=== PATIENT | male | born 1950 | race American Indian/Alaskan Native ===

== ENCOUNTER 2017-03-26 12:07 | Day surgery (SDC) | payer MEDICARE, OTHER ==
[~2017-03-26 12:07] MED LIST: Lactated Ringers 1,000 ML IV SCH; Lidocaine 2% 5 ML SDV ONE; Sodium Chloride 0.9% 10 ML Syringe FLUSH PRN; Sodium Chloride 0.9% 2.5 ML Syringe FLUSH PRN; fentaNYL 100 MCG/2 ML SDV ONE
[2017-03-26] MEDS ORDERED: Propofol 200 MG/20 ML SDV ONE (12:09)
--- NOTE | 2017-03-26 13:33 | PCM.PREANE ---
Preanesthetic Assessment - Anesthesia/Transfusion/Family Hx Anesthesia History: Prior Anesthesia Without Reaction Other Type of Anesthesia Reaction Comment: "hard to wake up" Family History of Anesthesia Reaction: No Transfusion History: No Prior Transfusion(s) Intubation History: Unknown - Review of Systems General: No Symptoms Pulmonary: No Symptoms Cardiovascular: No Symptoms Gastrointestinal: No symptoms Neurological: No Symptoms Other: Reports: None - Physical Assessment O2 Sat by Pulse Oximetry: 97 Respiratory Rate: 16 Vital Signs: Last Vital Signs Temp 36.3 C 03/26/17 12:59 Pulse 59 L 03/26/17 12:59 Resp 16 03/26/17 12:59 BP 149/71 H 03/26/17 12:59 Pulse Ox 97 03/26/17 12:59 Height: 1.75 m Weight: 120.202 kg ASA Class: 2 Mental Status: Alert & Oriented x3 Airway Class: Mallampati = 2 Dentition: Reports: Partial (lower) Thyro-Mental Finger Breadths: 3 Mouth Opening Finger Breadths: 2 ROM/Head Extension: Limited/Partial Lungs: Clear to auscultation, Normal respiratory effort Cardiovascular: Regular Rate, Regular Rhythm - Allergies Allergies/Adverse Reactions: Allergies Allergy/AdvReac Type Severity Reaction Status Date / Time acetaminophen Allergy Vomiting Verified 07/04/15 15:28 [From Darvocet-N] propoxyphene napsylate Allergy Vomiting Verified 07/04/15 15:28 [From Darvocet-N] Demerol tabs Allergy Nausea and Uncoded 07/04/15 15:28 Vomiting - Blood Blood Available: No - Anesthesia Plan Pre-Op Medication Ordered: None - Acknowledgements Anesthesia Type Planned: MAC Pt an Appropriate Candidate for the Planned Anesthesia: Yes Alternatives and Risks of Anesthesia Discussed w Pt/Guardian: Yes Pt/Guardian Understands and Agrees with Anesthesia Plan: Yes PreAnesthesia Questionnaire Other HEENT History: wears glasses, bottom partial Cardiovascular History: Reports: High Cholesterol, Hypertension Other Cardiovascular History: angiogram in 2007 showed some blockage but no intervention, 30 and 40 % on two coronary arteries Other Respiratory History: hx: smoking, QUIT 1994. 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- chest xray negative Gastrointestinal History: Reports: Colon Polyp, Helicobacter Pylori Other Gastrointestinal History: Hx: H pylori treated for this and resolved problems of heartburn Genitourinary History: Reports: Neurogenic Bladder Other Genitourinary History: kidney stone 3 yrs ago Musculoskeletal History: Reports: Arthritis Psychiatric History: Reports: None Endocrine/Metabolic History: Reports: Obesity/BMI 30+ Dermatologic History: Reports: Other (See Below) Other Dermatologic History: Rash Left thigh - Past Surgical History Head Surgeries/Procedures: Reports: None GI Surgical History: Reports: Cholecystectomy, Colonoscopy, Hernia, Inguinal ( right inguinal x2 \\) Other GI Surgeries/Procedures: Right Ing Hernia repair age 19 yrs, Lap Joanne ' 2008 Musculoskeletal Surgical History: Reports: Knee Replacement (left) Other Musculoskeletal Surgeries/Procedures:: Left total knee arthroplasty - SUBSTANCE USE Smoking Status *Q: Former Smoker Other Tobacco Use Within Last Twelve Months: Auit smoking '1994, SMoked for many years Recreational Drug Use History: No - HOME MEDS Home Medications: Home Meds Chlorthalidone 1 tab PO ACBREAKFAST 07/04/15 [History] Metoprolol Succinate [Toprol XL] 50 mg PO BEDTIME 07/04/15 [History] Niacin 200 mg PO DAILY 07/04/15 [History] Potassium Chloride 1 tab PO ACBREAKFAST 07/04/15 [History] Red Yeast Rice 1 tab PO DAILY 07/04/15 [History] Ubidecarenone [Co Q-10] 1 cap PO DAILY 07/04/15 [History] Vitamin B Complex & Vit C No.4 [Super B Complex] 1 tab PO DAILY 07/04/15 [ History] Rosuvastatin [Crestor] 1 tab PO DAILY 07/05/15 [History] Aspirin [[place] Aspirin] 81 mg PO DAILY 03/19/17 [History] Fluocinolone Acetonide 1 applic TOP ASDIRECTED PRN 03/19/17 [History] Losartan Potassium 100 mg PO BEDTIME 03/19/17 [History] Multivitamin [Multivitamins] 1 tab PO DAILY 03/19/17 [History] - CURRENT (IN HOUSE) MEDS Current Meds: Current Medications Lactated Ringer's (Ringers, Lactated) 1,000 mls @ 125 mls/hr IV ASDIRECTED CACHORRO Last Admin: 03/26/17 13:01 Dose: 125 mls/hr Sodium Chloride (Saline Flush) 10 ml FLUSH ASDIRECTED PRN PRN Reason: Keep Vein Open Sodium Chloride (Saline Flush) 2.5 ml FLUSH ASDIRECTED PRN PRN Reason: Keep Vein Open Discontinued Medications Fentanyl (Sublimaze) Confirm Administered Dose 100 mcg .ROUTE .STK-MED ONE Stop: 03/26/17 11:26 Lidocaine (Xylocaine-Mpf 2%) Confirm Administered Dose 5 ml .ROUTE .STK-MED ONE Stop: 03/26/17 11:26 Propofol (Diprivan 20 Ml) Confirm Administered Dose 400 mg .ROUTE .STK-MED ONE Stop: 03/26/17 12:10
--- NOTE | 2017-03-26 14:39 | PCM.OPNOTE ---
- General Post-Op/Procedure Note Date of Surgery/Procedure: 03/26/17 Operative Procedure(s): Diagnostic colonoscopy Findings: diverticulosis, mild Pre Op Diagnosis: Colon polyps Post-Op Diagnosis: diverticulosis Anesthesia Technique: MAC Primary Surgeon: Jacinta Durand Condition: Good
[2017-03-26 15:09] VITALS: BP 156/82
--- NOTE | 2017-03-27 09:33 | OR ---
SURGEON: LIZA SINCLAIR MD DATE OF PROCEDURE: 03/26/2017 PREOPERATIVE DIAGNOSIS: History of colon polyps. POSTOPERATIVE DIAGNOSIS: Diverticulosis. PROCEDURE PERFORMED: Diagnostic colonoscopy. ANESTHESIA: MAC. EXTENT OF THE EXAM: To the cecum. PREPARATION: Good. LIMITATIONS: None indications. INDICATION FOR EXAMINATION: The patient is a gentleman who presents to clinic with a history of colon polyps. He was lost to followup and is in need of a repeat colonoscopy. We discussed the procedure as well as expected perioperative course. We discussed the risks, including bleeding, infection, or damage to the surrounding structures, including perforation. The patient verbalized understanding and wishes to proceed. PROCEDURE IN DETAIL: The patient was brought into the endoscopy suite and placed in the left lateral decubitus position. A time-out was completed verifying the patient's name, age, date of , allergies, and procedure to be performed. Monitored anesthesia care was induced and continuous oxygen was provided via nasal cannula throughout the procedure. After adequate sedation was achieved, digital rectal exam was performed. This exam was within normal limits. A well lubricated colonoscope was inserted into the patient's rectum and advanced under direct visualization to the level of the cecum. Cecum was identified by both visual and anatomic landmarks. A photograph was taken of the cecal cap; however, I was unable to retroflex the scope within the cecum due to looping more proximally. The scope was then fully withdrawn while examining the color, texture, anatomy, and integrity of the mucosa from the cecum to the anal canal. This was consistent with mild diverticulosis. The scope was brought into the rectum and retroflexed to allow visualization of the anal canal opening. This appeared normal and a photograph was taken. The scope was then straightened out and removed from the patient. The cecum to anus time was 14 minutes. The patient tolerated the procedure well and was taken to the PACU in stable condition. ENDOSCOPIC DIAGNOSIS: Diverticulosis. RECOMMENDATIONS: After the visit, I informed the patient of his diagnosis of diverticulosis. I explained the pathophysiology of the disease including having a diet high in fiber and drinking plenty of water throughout the day. The patient should follow up in clinic in 5 years. TIMA ALONZO /[id number]
== END 2017-03-26 15:15 | disposition home or self-care (01) ==
LOC: MW.SDS 12:07
PROVIDERS: ATTEND Surgery
PROC: 0DJD8ZZ Inspection of Lower Intestinal Tract, Via Natural or Artificial Opening Endoscopic (ICD-10-PCS; principal; 2017-03-26)
DX: Z12.11 Encounter for screening for malignant neoplasm of colon (principal); K57.30 Diverticulosis of large intestine without perforation or abscess without bleeding; Z86.010 Personal history of colon polyps; E78.00 Pure hypercholesterolemia, unspecified; I10 Essential (primary) hypertension; M19.90 Unspecified osteoarthritis, unspecified site; E66.9 Obesity, unspecified; Z87.891 Personal history of nicotine dependence; Z87.442 Personal history of urinary calculi; Z88.5 Allergy status to narcotic agent; Z88.6 Allergy status to analgesic agent; Z79.82 Long term (current) use of aspirin; Z79.899 Other long term (current) drug therapy; Z96.652 Presence of left artificial knee joint; Z90.49 Acquired absence of other specified parts of digestive tract; Z98.890 Other specified postprocedural states; Z68.38 Body mass index [BMI] 38.0-38.9, adult
CPT/HCPCS: G0105; J3010; J7120; J2704

== ENCOUNTER 2019-09-29 10:23 | Emergency (ER) | payer MEDICARE, OTHER ==
--- NOTE | 2019-09-29 10:41 | EDM.PDOC ---
ED HPI GENERAL MEDICAL PROBLEM - General Chief Complaint: Lower Extremity Injury/Pain Stated Complaint: FELL AND BROKE HIS LEFT KNEE Time Seen by Provider: 09/29/19 10:41 Source of Information: Reports: Patient History Limitations: Reports: No Limitations - History of Present Illness INITIAL COMMENTS - FREE TEXT/NARRATIVE: HISTORY AND PHYSICAL: History of present illness: Patient is a 69-year-old male presents to the ED with complaint of left knee pain. He states this morning he slip on the ice and twisted his knee and landed on it. He states he was able to walk on it immediately after but then after sitting down for a while he had worsening pain and unable to walk on it. He reports history of total knee replacement on the left 6 years ago. He states he see Dr. Resendiz in [place] for steroid shots in his right knee and has a follow up with him in 1 month. He denies head or other injury and denies proximal hip pain or distal pain, numbness, or tingling. Review of systems: As per history of present illness and below otherwise all systems reviewed and negative. Past medical history: As per history of present illness and as reviewed below otherwise noncontributory. Surgical history: As per history of present illness and as reviewed below otherwise noncontributory. Social history: No reported history of drug or alcohol abuse. Family history: As per history of present illness and as reviewed below otherwise noncontributory. Physical exam: General: Patient sitting comfortably in no acute distress and nontoxic appearing HEENT: Atraumatic, normocephalic, pupils reactive, negative for conjunctival pallor or scleral icterus, mucous membranes moist, throat clear, neck supple, nontender, trachea midline. No meningeal signs. Lungs: Clear to auscultation, breath sounds equal bilaterally, chest nontender. Heart: S1S2, regular, negative for clicks, rubs, or overt murmur. Abdomen: Soft, nondistended, nontender. Negative for masses or hepatosplenomegaly. Negative for costovertebral tenderness. No rigidity, rebound , guarding. Pelvis: Stable nontender. Genitourinary: Deferred. Rectal: Deferred. Extremities: Well healed anterior incision to the left knee. Moderate swelling noted. No erythema or warmth, skin is intact. Pain to palpation of medial knee. Atraumatic, negative for cords or calf pain. Neurovascular unremarkable. Neuro: Awake, alert, oriented. Cranial nerves II through XII unremarkable. Cerebellum unremarkable. Motor and sensory unremarkable throughout. Exam nonfocal. Notes: Diagnostics: x-ray left knee Therapeutics: Toradol 60mg IM Prescriptions: Impression: Left knee injury Plan: 1. Ice, elevate, and motrin or tylenol as needed 2. Follow up with orthopedics, please call the number provided to schedule an appointment 3. Return to ED as needed as discussed Definitive disposition and diagnosis as appropriate pending reevaluation and review of above. - Related Data Allergies Allergy/AdvReac Type Severity Reaction Status Date / Time acetaminophen Allergy Vomiting Verified 09/29/19 10:51 [From Darvocet-N] propoxyphene napsylate Allergy Vomiting Verified 09/29/19 10:51 [From Darvocet-N] Demerol tabs Allergy Nausea and Uncoded 09/29/19 10:51 Vomiting Home Meds: Home Meds Potassium Chloride 1 tab PO ACBREAKFAST 07/04/15 [History] Rosuvastatin [Crestor] 1 tab PO DAILY 07/05/15 [History] Amoxicillin 2,000 mg PO ASDIRECTED PRN 09/29/19 [History] Betamethasone/Clotrimazole [Lotrisone] 1 applic TOP BID PRN 09/29/19 [History] Diclofenac Sodium [Voltaren] 75 mg PO BID PRN 09/29/19 [History] Diclofenac Sodium [Voltaren] 75 mg PO BIDMEALS #20 tab.cr 09/29/19 [Rx] Doxazosin [Cardura] 4 mg PO BEDTIME 09/29/19 [History] Metaxalone 800 mg PO BID PRN 09/29/19 [History] Omeprazole 40 mg PO DAILY 09/29/19 [History] Past Medical History Other HEENT History: wears glasses, bottom partial Cardiovascular History: Reports: High Cholesterol, Hypertension Other Cardiovascular History: angiogram in 2007 showed some blockage but no intervention, 30 and 40 % on two coronary arteries Other Respiratory History: hx: smoking, QUIT 1994. 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- chest xray negative Gastrointestinal History: Reports: Colon Polyp, Helicobacter Pylori Other Gastrointestinal History: Hx: H pylori treated for this and resolved problems of heartburn Genitourinary History: Reports: Neurogenic Bladder Other Genitourinary History: kidney stone 3 yrs ago Musculoskeletal History: Reports: Arthritis Psychiatric History: Reports: None Endocrine/Metabolic History: Reports: Obesity/BMI 30+ Dermatologic History: Reports: Other (See Below) Other Dermatologic History: Rash Left thigh - Past Surgical History Head Surgeries/Procedures: Reports: None GI Surgical History: Reports: Cholecystectomy, Colonoscopy, Hernia, Inguinal Other GI Surgeries/Procedures: Right Ing Hernia repair age 19 yrs, Lap Joanne2008 Musculoskeletal Surgical History: Reports: Knee Replacement Other Musculoskeletal Surgeries/Procedures:: Left total knee arthroplasty Review of Systems - Review of Systems Review Of Systems: Comprehensive ROS is negative, except as noted in HPI. ED EXAM, GENERAL - Physical Exam Exam: See Below (see dictation) Course - Vital Signs Last Recorded V/S: Last Vital Signs Temp 97.6 F 09/29/19 10:47 Pulse 67 09/29/19 10:47 Resp 16 09/29/19 10:47 BP 138/82 09/29/19 10:47 Pulse Ox 98 09/29/19 10:47 - Orders/Labs/Meds Meds: Medications Discontinued Medications Generic Name Dose Route Start Last Admin Trade Name Freq PRN Reason Stop Dose Admin Ketorolac Tromethamine 60 mg 09/29/19 10:50 09/29/19 11:22 Toradol IM 09/29/19 10:51 60 mg ONETIME ONE Administration Departure - Departure Time of Disposition: 11:52 Disposition: Home, Self-Care 01 Condition: Good Clinical Impression: Left knee injury - Discharge Information Referrals: Dari Chambers MD [Primary Care Provider] - Forms: ED Department Discharge Additional Instructions: The following information is given to patients seen in the emergency department who are being discharged to home. This information is to outline your options for follow-up care. We provide all patients seen in our emergency department with a follow-up referral. The need for follow-up, as well as the timing and circumstances, are variable depending upon the specifics of your emergency department visit. If you don't have a primary care physician on staff, we will provide you with a referral. We always advise you to contact your personal physician following an emergency department visit to inform them of the circumstance of the visit and for follow-up with them and/or the need for any referrals to a consulting specialist. The emergency department will also refer you to a specialist when appropriate. This referral assures that you have the opportunity for follow-up care with a specialist. All of these measure are taken in an effort to provide you with optimal care, which includes your follow-up. Under all circumstances we always encourage you to contact your private physician who remains a resource for coordinating your care. When calling for follow-up care, please make the office aware that this follow-up is from your recent emergency room visit. If for any reason you are refused follow-up, please contact the [facility] Emergency Department at and asked to speak to the emergency department charge nurse. [facility] - Orth[facility] Professional Building [address] [place] [address], [address] [place] [address] Dr Resendiz, Orthopedist [address] [address] 1. Ice, elevate, and motrin or tylenol as needed 2. Follow up with orthopedics, please call the number provided to schedule an appointment 3. Return to ED as needed as discussed Sepsis Event Note - Focused Exam Vital Signs: Vital Signs Temp Pulse Resp BP Pulse Ox 09/29/19 10:47 97.6 F 67 16 138/82 98 Date Exam was Performed: 09/29/19 Time Exam was Performed: 11:51
[2019-09-29] MEDS ORDERED: Ketorolac 60 MG/2 ML SDV IM ONE (10:50)
--- NOTE | 2019-09-29 11:48 | CR ---
Left knee: AP, lateral and sunrise patellar views left knee were obtained. Comparison: Previous left knee study of 10/18/13. Knee prosthesis is noted. Components are aligned. Small joint effusion is seen. Vascular calcification is present. No fracture or other abnormality is appreciated. Impression: 1. Small joint effusion appears to be present. 2. Left knee prosthesis is stable in appearance. 3. No acute bony abnormality is identified. Diagnostic code #3 This report was dictated in [place] Standard Time
[2019-09-29 12:22] VITALS: BP 162/68; PULSE 54
== END 2019-09-29 12:05 | disposition home or self-care (01) ==
LOC: MW.ED 10:23
DX: S89.92XA Unspecified injury of left lower leg, initial encounter (principal); I12.9 Hypertensive chronic kidney disease with stage 1 through stage 4 chronic kidney disease, or unspecified chronic kidney disease; N18.3 Chronic kidney disease, stage 3 (moderate); E66.9 Obesity, unspecified; E78.00 Pure hypercholesterolemia, unspecified; Z88.5 Allergy status to narcotic agent; Z79.899 Other long term (current) drug therapy; Z88.6 Allergy status to analgesic agent; Z87.891 Personal history of nicotine dependence; W00.0XXA Fall on same level due to ice and snow, initial encounter
CPT/HCPCS: 73562; 96372; 99283; J1885

== ENCOUNTER 2024-02-07 11:18 | Inpatient (IN) | payer MEDICARE, OTHER ==
[2024-02-07 12:35] LABS: BASOPHILS ABSOLUTE AUTO 0.06 K/uL (0.00-0.20); BASOPHILS PERCENT AUTO 0.7 % (0.0-1.0); EOSINOPHILS ABSOLUTE AUTO 0.25 K/uL (0.00-0.45); EOSINOPHILS PERCENT AUTO 2.8 % (0.0-6.0); HEMATOCRIT 39.4 % (42.0-52.0); HEMOGLOBIN 13.4 g/dL (14.0-18.0); IMMATURE GRAN ABSOLUTE AUTO 0.02 K/uL (0.00-0.05); IMMATURE GRAN PERCENT AUTO 0.2 % (0.0-0.4); LYMPHOCYTES ABSOLUTE AUTO 3.69 K/uL (1.00-4.80); LYMPHOCYTES PERCENT AUTO 41.3 % (24.0-44.0); MEAN CORPUSCULAR HEMOGLOBIN 29.9 pg (28.0-32.0); MEAN CORPUSCULAR VOLUME 87.9 fL (83.0-99.0); MEAN PLATELET VOLUME 9.5 fL (9.4-12.4); MONOCYTES ABSOLUTE AUTO 0.72 K/uL (0.00-0.80); MONOCYTES PERCENT AUTO 8.1 % (0.0-8.0); NEUTROPHILS PERCENT AUTO 46.9 % (41.0-71.0); PLATELET COUNT,PLT 187 K/uL (150-400); RED BLOOD CELL COUNT 4.48 M/uL (4.52-5.90); WHITE BLOOD CELL COUNT,WBC 8.94 K/uL (3.9-11.3)
[2024-02-07 12:43] LABS: INR 1.09 (0.86-1.11)
[2024-02-07 12:56] LABS: A/G RATIO 0.9 (0.9-1.6); ALBUMIN 3.3 g/dL (3.4-5.0); BILIRUBIN TOTAL 0.6 mg/dL (0.2-1.0); CALCIUM 9.3 mg/dL (8.5-10.1); CARBON DIOXIDE,CO2 29.2 mmol/L (21.0-32.0); CREATININE 1.4 mg/dL (0.8-1.3); EST CRCL DRUG DOSING (CG) 46.99 mL/min; POTASSIUM,K 4.1 mmol/L (3.5-5.1); PROTEIN TOTAL,TP 6.9 g/dL (6.4-8.2)
[2024-02-07] MEDS: Metoclopramide 10 MG/2 ML SDV IVPUSH ONE (12:57)
[2024-02-07] MEDS: Sodium Chloride 0.9% 500 ML IV SCH ×2 (12:59→14:08)
[2024-02-07] MEDS: Morphine 4 MG/ML Syringe IVPUSH ONE ×3 (12:59→16:30)
[2024-02-07] MEDS: Sodium Chloride 0.9% 10 ML Syringe FLUSH PRN (13:00)
[2024-02-07] MEDS: Sodium Chloride 0.9% 2.5 ML Syringe FLUSH PRN (13:00)
[2024-02-07] MEDS: Morphine 4 MG/ML Syringe IM ONE (13:05)
[2024-02-07 13:42] LABS: CORONAVIRUS COVID-19 NAA NEGATIVE (NEGATIVE); INFLUENZA A NAA NEGATIVE (NEGATIVE); INFLUENZA B NAA NEGATIVE (NEGATIVE)
[2024-02-07] MEDS: Tetracaine HCl/PF 0.5% 4 ML Bottle EYEBOTH ONE (14:20)
[2024-02-07 18:03] LABS: APPEARANCE CSF CLEAR; COLOR,CSF COLORLESS; WBC,CSF 10 /uL (0-5)
[2024-02-07 18:04] LABS: APPEARANCE CSF CLEAR; COLOR,CSF COLORLESS; MONONUCLEAR, CSF 91.7 %; POLYMORPHONUCLEAR, CSF 8.3 %; RBC,CSF 26 /uL (0-0); RBC,CSF 6 /uL (0-0); WBC,CSF 12 /uL (0-5)
[2024-02-07] MEDS: cefTRIAXone 2 GM in Sodium Chloride 0.9% 50 ML IV ONE (19:17)
[2024-02-07] MEDS: Ampicillin 2 GM in Sodium Chloride 0.9% 100 ML IV ONE (19:42)
[2024-02-07] MEDS: Ondansetron 4 MG/2 ML SDV IVPUSH PRN (21:26)
[2024-02-07] MEDS: Morphine 2 MG/ML SYRINGE IVPUSH PRN (21:27)
[2024-02-07] MEDS: VANCOmycin 2 GM/400 ML 2 GM in Premix Bag 1 BAG IV ONE ×2 (22:12→23:14)
[2024-02-08] MEDS ORDERED: 50% Dextrose in Water 50 ML Syringe IVPUSH PRN (00:34)
[2024-02-08] MEDS ORDERED: Glucagon,Human Recombinant 1 MG Vial IM PRN (00:34)
[2024-02-08] MEDS ORDERED: Promethazine 25 MG Tab PO PRN (00:35)
[2024-02-08] MEDS: Ampicillin 2 GM in Sodium Chloride 0.9% 100 ML IV SCH (00:42)
[2024-02-08] MEDS: Acetaminophen 325 MG Tab PO PRN (03:19)
[2024-02-08 06:33] LABS: BASOPHILS ABSOLUTE AUTO 0.05 K/uL (0.00-0.20); BASOPHILS PERCENT AUTO 0.7 % (0.0-1.0); EOSINOPHILS ABSOLUTE AUTO 0.22 K/uL (0.00-0.45); HEMATOCRIT 38.3 % (42.0-52.0); HEMOGLOBIN 13.1 g/dL (14.0-18.0); IMMATURE GRAN ABSOLUTE AUTO 0.01 K/uL (0.00-0.05); IMMATURE GRAN PERCENT AUTO 0.1 % (0.0-0.4); LYMPHOCYTES ABSOLUTE AUTO 2.47 K/uL (1.00-4.80); LYMPHOCYTES PERCENT AUTO 33.2 % (24.0-44.0); MEAN CORPUSCULAR HGB CONC 34.2 g/dL (32.0-36.0); MEAN CORPUSCULAR VOLUME 87.6 fL (83.0-99.0); MEAN PLATELET VOLUME 9.4 fL (9.4-12.4); MONOCYTES ABSOLUTE AUTO 0.65 K/uL (0.00-0.80); MONOCYTES PERCENT AUTO 8.7 % (0.0-8.0); NEUTROPHILS ABSOLUTE AUTO 4.04 K/uL (1.80-7.70); NEUTROPHILS PERCENT AUTO 54.3 % (41.0-71.0); PLATELET COUNT,PLT 171 K/uL (150-400); RED BLOOD CELL COUNT 4.37 M/uL (4.52-5.90); WHITE BLOOD CELL COUNT,WBC 7.44 K/uL (3.9-11.3)
[2024-02-08] MEDS: cefTRIAXone 2 GM in Sodium Chloride 0.9% 50 ML IV SCH (06:34)
[2024-02-08 06:50] LABS: CALCIUM 8.2 mg/dL (8.5-10.1); CARBON DIOXIDE,CO2 29.1 mmol/L (21.0-32.0); CREATININE 1.2 mg/dL (0.8-1.3); EST CRCL DRUG DOSING (CG) 54.83 mL/min
[2024-02-08] MEDS: Ibuprofen 400 MG Tab PO PRN (06:52)
[2024-02-08] MEDS: Insulin Aspart 100 Units/ML 3 ML Pen SUBCUT SCH (06:53)
[2024-02-08] MEDS: Potassium Chloride 20 MEQ Tab.ER PO ONE (08:09)
[2024-02-08 14:18] LABS: HEMATOCRIT 38.1 % (42.0-52.0); HEMOGLOBIN 13.2 g/dL (14.0-18.0)
[2024-02-08] MEDS ORDERED: VANCOmycin 1.75 GM/350 ML 1.75 GM in Premix Bag 1 BAG IV SCH (20:00)
[2024-02-09] MEDS: Pantoprazole 40 MG Tab.CR PO SCH (06:35)
[2024-02-09 06:37] LABS: BASOPHILS ABSOLUTE AUTO 0.05 K/uL (0.00-0.20); BASOPHILS PERCENT AUTO 0.6 % (0.0-1.0); EOSINOPHILS ABSOLUTE AUTO 0.37 K/uL (0.00-0.45); EOSINOPHILS PERCENT AUTO 4.4 % (0.0-6.0); HEMATOCRIT 36.6 % (42.0-52.0); HEMOGLOBIN 12.5 g/dL (14.0-18.0); IMMATURE GRAN ABSOLUTE AUTO 0.01 K/uL (0.00-0.05); IMMATURE GRAN PERCENT AUTO 0.1 % (0.0-0.4); LYMPHOCYTES ABSOLUTE AUTO 2.52 K/uL (1.00-4.80); LYMPHOCYTES PERCENT AUTO 29.8 % (24.0-44.0); MEAN CORPUSCULAR HEMOGLOBIN 29.5 pg (28.0-32.0); MEAN CORPUSCULAR HGB CONC 34.2 g/dL (32.0-36.0); MEAN CORPUSCULAR VOLUME 86.3 fL (83.0-99.0); MEAN PLATELET VOLUME 9.7 fL (9.4-12.4); MONOCYTES ABSOLUTE AUTO 0.82 K/uL (0.00-0.80); MONOCYTES PERCENT AUTO 9.7 % (0.0-8.0); NEUTROPHILS ABSOLUTE AUTO 4.69 K/uL (1.80-7.70); NEUTROPHILS PERCENT AUTO 55.4 % (41.0-71.0); PLATELET COUNT,PLT 192 K/uL (150-400); RED BLOOD CELL COUNT 4.24 M/uL (4.52-5.90); WHITE BLOOD CELL COUNT,WBC 8.46 K/uL (3.9-11.3)
[2024-02-09 07:13] LABS: A/G RATIO 0.9 (0.9-1.6); ALBUMIN 3.1 g/dL (3.4-5.0); BILIRUBIN TOTAL 0.5 mg/dL (0.2-1.0); CALCIUM 8.3 mg/dL (8.5-10.1); CARBON DIOXIDE,CO2 27.9 mmol/L (21.0-32.0); CREATININE 1.2 mg/dL (0.8-1.3); EST CRCL DRUG DOSING (CG) 54.83 mL/min; POTASSIUM,K 2.8 mmol/L (3.5-5.1); PROTEIN TOTAL,TP 6.4 g/dL (6.4-8.2)
[2024-02-09 17:28] LABS: LACTIC ACID 0.9 mmol/L (0.4-2.0)
[2024-02-10 06:16] LABS: BASOPHILS ABSOLUTE AUTO 0.07 K/uL (0.00-0.20); EOSINOPHILS ABSOLUTE AUTO 0.51 K/uL (0.00-0.45); EOSINOPHILS PERCENT AUTO 7.2 % (0.0-6.0); HEMOGLOBIN 12.7 g/dL (14.0-18.0); IMMATURE GRAN ABSOLUTE AUTO 0.01 K/uL (0.00-0.05); IMMATURE GRAN PERCENT AUTO 0.1 % (0.0-0.4); LYMPHOCYTES ABSOLUTE AUTO 2.76 K/uL (1.00-4.80); LYMPHOCYTES PERCENT AUTO 39.1 % (24.0-44.0); MEAN CORPUSCULAR HEMOGLOBIN 29.8 pg (28.0-32.0); MEAN CORPUSCULAR HGB CONC 34.3 g/dL (32.0-36.0); MEAN CORPUSCULAR VOLUME 86.9 fL (83.0-99.0); MEAN PLATELET VOLUME 9.4 fL (9.4-12.4); MONOCYTES ABSOLUTE AUTO 0.61 K/uL (0.00-0.80); MONOCYTES PERCENT AUTO 8.7 % (0.0-8.0); NEUTROPHILS ABSOLUTE AUTO 3.09 K/uL (1.80-7.70); NEUTROPHILS PERCENT AUTO 43.9 % (41.0-71.0); PLATELET COUNT,PLT 209 K/uL (150-400); RED BLOOD CELL COUNT 4.26 M/uL (4.52-5.90); WHITE BLOOD CELL COUNT,WBC 7.05 K/uL (3.9-11.3)
[2024-02-10 06:58] LABS: A/G RATIO 0.9 (0.9-1.6); ALBUMIN 3.2 g/dL (3.4-5.0); BILIRUBIN TOTAL 0.6 mg/dL (0.2-1.0); CALCIUM 8.8 mg/dL (8.5-10.1); CREATININE 1.1 mg/dL (0.8-1.3); EST CRCL DRUG DOSING (CG) 59.81 mL/min; POTASSIUM,K 3.3 mmol/L (3.5-5.1); PROTEIN TOTAL,TP 6.7 g/dL (6.4-8.2)
[2024-02-10] MEDS: Hyaluronidase, Human Recomb. 150 Unit/ML Vial IJ ONE (08:14)
[2024-02-10] MEDS: Ketorolac 30 MG/ML SDV IVPUSH PRN (13:33)
[2024-02-11 06:09] LABS: BASOPHILS ABSOLUTE AUTO 0.07 K/uL (0.00-0.20); BASOPHILS PERCENT AUTO 1.3 % (0.0-1.0); EOSINOPHILS ABSOLUTE AUTO 0.44 K/uL (0.00-0.45); EOSINOPHILS PERCENT AUTO 8.2 % (0.0-6.0); HEMATOCRIT 35.2 % (42.0-52.0); HEMOGLOBIN 12.2 g/dL (14.0-18.0); IMMATURE GRAN ABSOLUTE AUTO 0.02 K/uL (0.00-0.05); IMMATURE GRAN PERCENT AUTO 0.4 % (0.0-0.4); LYMPHOCYTES ABSOLUTE AUTO 1.97 K/uL (1.00-4.80); LYMPHOCYTES PERCENT AUTO 36.7 % (24.0-44.0); MEAN CORPUSCULAR HEMOGLOBIN 30.1 pg (28.0-32.0); MEAN CORPUSCULAR HGB CONC 34.7 g/dL (32.0-36.0); MEAN CORPUSCULAR VOLUME 86.9 fL (83.0-99.0); MEAN PLATELET VOLUME 9.6 fL (9.4-12.4); MONOCYTES ABSOLUTE AUTO 0.42 K/uL (0.00-0.80); MONOCYTES PERCENT AUTO 7.8 % (0.0-8.0); NEUTROPHILS ABSOLUTE AUTO 2.45 K/uL (1.80-7.70); NEUTROPHILS PERCENT AUTO 45.6 % (41.0-71.0); PLATELET COUNT,PLT 201 K/uL (150-400); RED BLOOD CELL COUNT 4.05 M/uL (4.52-5.90); WHITE BLOOD CELL COUNT,WBC 5.37 K/uL (3.9-11.3)
[2024-02-11 06:38] LABS: A/G RATIO 0.9 (0.9-1.6); ALBUMIN 2.9 g/dL (3.4-5.0); BILIRUBIN TOTAL 0.5 mg/dL (0.2-1.0); CALCIUM 8.6 mg/dL (8.5-10.1); CARBON DIOXIDE,CO2 28.8 mmol/L (21.0-32.0); EST CRCL DRUG DOSING (CG) 65.79 mL/min; POTASSIUM,K 2.5 mmol/L (3.5-5.1); PROTEIN TOTAL,TP 6.3 g/dL (6.4-8.2)
[2024-02-11] MEDS ORDERED: Potassium Chloride 20 MEQ Tab.ER PO ONE (14:32)
[2024-02-11] MEDS: Potassium Chloride 20 MEQ Tab.ER PO ONE ×2 (15:06→19:52)
[2024-02-11] MEDS: NS with KCl 40mEq 1,000 ML IV SCH (15:07)
[2024-02-11 18:15] LABS: CALCIUM 8.2 mg/dL (8.5-10.1); CARBON DIOXIDE,CO2 28.6 mmol/L (21.0-32.0); CREATININE 1.1 mg/dL (0.8-1.3); EST CRCL DRUG DOSING (CG) 59.81 mL/min; POTASSIUM,K 2.8 mmol/L (3.5-5.1)
[2024-02-11] MEDS: Magnesium Oxide 400 MG Tab PO ONE (18:53)
[2024-02-11 20:16] VITALS: BP 158/77; PULSE 57
== END 2024-02-11 20:00 | disposition home or self-care (01) | DRG 98 ==
LOC: MW.ED 11:18 → MW.MS 18:56
PROVIDERS: ADMIT Internal Medicine; ATTEND Internal Medicine
PROC: 009U3ZX Drainage of Spinal Canal, Percutaneous Approach, Diagnostic (ICD-10-PCS; principal; 2024-02-07)
DX: G03.9 Meningitis, unspecified (principal); D84.9 Immunodeficiency, unspecified; I25.10 Atherosclerotic heart disease of native coronary artery without angina pectoris; I10 Essential (primary) hypertension; M19.90 Unspecified osteoarthritis, unspecified site; E66.9 Obesity, unspecified; E87.6 Hypokalemia; E78.00 Pure hypercholesterolemia, unspecified; Z75.8 Other problems related to medical facilities and other health care; Z88.8 Allergy status to other drugs, medicaments and biological substances; Z90.49 Acquired absence of other specified parts of digestive tract; Z68.36 Body mass index [BMI] 36.0-36.9, adult; Z79.84 Long term (current) use of oral hypoglycemic drugs; Z96.659 Presence of unspecified artificial knee joint; Z79.899 Other long term (current) drug therapy; Z86.010 Personal history of colon polyps; Z87.891 Personal history of nicotine dependence; Z86.16 Personal history of COVID-19
CPT/HCPCS: 0240U; 36415; 62270; 70450; 80048; 80053; 80202; 82945; 82947; 83605; 83735; 84157; 85014; 85018; 85025; 85610; 86850; 86900; 86901; 87040; 87045; 87046; 87070; 87205; 87252; 87324; 87449; 87483; 87899; 89050; 96361; 96374; 96375; 96376; 99285; 99222; 99231; 99239; A9270-GY; J0133; J0290; J0696; J1885; J2270; J2405; J2765; J3370; J3480; J3490; J7040; J7050

== ENCOUNTER 2024-05-24 08:51 | Day surgery (SDC) | payer MEDICARE, OTHER ==
[~2024-05-24 08:51] MED LIST changes: -Lactated Ringers 1,000 ML IV SCH; -Lidocaine 2% 5 ML SDV ONE; +Sodium Chloride 0.9% 20 ML SDV IV PRN; -fentaNYL 100 MCG/2 ML SDV ONE
[2024-05-24] MEDS: Lactated Ringers 1,000 ML IV SCH (09:26)
[2024-05-24] MEDS ORDERED: propofoL 50 ML ONE (11:25)
[2024-05-24] MEDS ORDERED: Lidocaine 2% 5 ML SDV ONE (11:25)
[2024-05-24] MEDS ORDERED: dexmedeTOMIDine HCl 200 MCG/2 ML SDV ONE (11:43)
[2024-05-24] MEDS ORDERED: Water For Injection, Sterile 20 ML ONE (11:43)
[2024-05-24] MEDS ORDERED: Glycopyrrolate 0.2 MG/ML SDV ONE ×2 (11:53→11:56)
[2024-05-24] MEDS ORDERED: hydrALAZINE 20 MG/ML SDV ONE (12:08)
[2024-05-24] MEDS ORDERED: Atropine 1 MG/ML SDV ONE (12:14)
[2024-05-24 13:31] VITALS: BP 106/63; PULSE 65
== END 2024-05-24 13:11 | disposition home or self-care (01) ==
LOC: MW.SDS 08:51
PROVIDERS: ATTEND Surgery
DX: K57.30 Diverticulosis of large intestine without perforation or abscess without bleeding (principal); K21.9 Gastro-esophageal reflux disease without esophagitis; R19.4 Change in bowel habit; D64.9 Anemia, unspecified; E11.9 Type 2 diabetes mellitus without complications; I10 Essential (primary) hypertension; E66.9 Obesity, unspecified; I44.1 Atrioventricular block, second degree; G47.33 Obstructive sleep apnea (adult) (pediatric); E78.00 Pure hypercholesterolemia, unspecified; Z88.8 Allergy status to other drugs, medicaments and biological substances; Z79.82 Long term (current) use of aspirin; Z79.899 Other long term (current) drug therapy; Z79.84 Long term (current) use of oral hypoglycemic drugs; Z87.891 Personal history of nicotine dependence; Z68.34 Body mass index [BMI] 34.0-34.9, adult
CPT/HCPCS: 43239; 45380; 82947; 88305; J0360; J0461; J1596; J2704; J7120; 00813; J3490